=== PATIENT | female | born 1975 | race Caucasian/White ===

== ENCOUNTER 2018-04-28 18:08 | Emergency (ER) | payer OTHER ==
--- NOTE | 2018-04-28 18:45 | EDPHY ---
H & P Time Seen by Provider: 04/28/18 18:38 HPI/ROS: Chief complaint. Chest pain and abdominal pain and back pain HPI. Patient 42-year-old female who presents with upper back and neck pain since yesterday. She has felt tired and achy. She has had abdominal bloating and nausea which is worse after eating. She has some anterior midline chest pressure that does not seem to radiate or be worse with exertion or breathing. No shortness of breath. No upper respiratory symptoms or fever. No known exposure to Infectious Disease. No recent travel. Strong family history of gallbladder disease. Her left shoulder is bothering her more she has a partial rotator cuff tear and think that this is recently exacerbated. ROS 10 systems were reviewed and negative with the exception of the elements mentioned in the history of present illness Past Medical/Surgical History: Anxiety, degenerative disc disease, chronic GI problems, arthritis Social History: Single, nonsmoker, no alcohol Smoking Status: Former smoker Physical Exam: General Appearance: Alert pleasant well-developed female mild distress vital signs are stable Eyes: Pupils equal and round no pallor or injection. ENT, Mouth: Mucous membranes are moist. Respiratory: There are no retractions, lungs are clear to auscultation. Cardiovascular: Regular rate and rhythm. Gastrointestinal: Abdomen is soft with tenderness in upper abdomen both right upper and left upper quadrants as well as epigastrium. Neurological: Awake and alert, sensory and motor exams grossly normal. Skin: Warm and dry, no rashes. Musculoskeletal: Neck is supple nontender. Tightness in the muscles of the upper back. No tenderness over the spine. Extremities symmetrical, full range of motion. Psychiatric: Patient is oriented X 3, there is no agitation. Constitutional: Initial Vital Signs Temperature (C) 36.6 C 04/28/18 18:19 Heart Rate 81 04/28/18 18:19 Respiratory Rate 18 04/28/18 18:19 Blood Pressure 131/85 H 04/28/18 18:19 O2 Sat (%) 94 04/28/18 18:19 O2 Delivery Mode Room Air Allergies/Adverse Reactions: No Known Allergies Allergy (Unverified 04/28/18 18:26) Home Medications: Medication Instructions Recorded Control 04/28/18 CeleBREX 04/28/18 Robaxin 750 mg (*) 04/28/18 traMADol 04/28/18 Medical Decision Making - Diagnostics EKG Interpretation: EKG interpreted by me shows normal sinus rhythm with normal interval. There is left axis deviation. QRS is otherwise normal. There is no significant ST elevation or depression. There is no arrhythmia. The rate is 81 Imaging Results: Imaging Impressions Abdomen Ultrasound 04/28/18 18:57 Impression: No evidence for cholelithiasis or cholecystitis. Probable mild fatty infiltration of the liver. Pancreas is not well visualized secondary overlying bowel gas. Results called and discussed with Ian Joy MD on April 28, 2018 at 1950 hours. Chest X-Ray 04/28/18 18:58 IMPRESSION: No evidence for acute cardiopulmonary abnormality. Ultrasound gallbladder shows no stones. Mild fatty infiltration Chest x-ray interpreted by me is normal Procedures: IV normal saline ED Course/Re-evaluation: Re-evaluation 8:00 p.m.. Patient and I discussed imaging and lab results. We discussed treatment plan including criteria for return importance of follow-up and further evaluation. She expresses understanding and agreement Differential Diagnosis: She got good relief from GI cocktail and I think this retrosternal chest pain represents GERD. We considered gallbladder disease but no evidence for gallstones. Considered acute coronary syndrome but has normal workup. No evidence for pneumonia or infection. - Data Points Laboratory Results: Laboratory Results 04/28/18 19:25 04/28/18 19:25 04/28/18 04/28/18 04/28/18 19:37 19:25 19:25 WBC 3.99 10^3/uL 10^3/uL (3.80-9.50) RBC 4.10 10^6/uL L 10^6/uL (4.18-5.33) Hgb 13.8 g/dL g/dL (12.6-16.3) Hct 41.1 % % (38.0-47.0) MCV 100.2 fL H fL (81.5-99.8) MCH 33.7 pg pg (27.9-34.1) MCHC 33.6 g/dL g/dL (32.4-36.7) RDW 12.6 % % (11.5-15.2) Plt Count 302 10^3/uL 10^3/uL (150-400) MPV 8.8 fL fL (8.7-11.7) Neut % (Auto) 47.6 % % (39.3-74.2) Lymph % (Auto) 37.8 % % (15.0-45.0) [place] % (Auto) 11.5 % % (4.5-13.0) Eos % (Auto) 2.0 % % (0.6-7.6) Baso % (Auto) 0.8 % % (0.3-1.7) Nucleat RBC Rel Count 0.0 % % (0.0-0.2) Absolute Neuts (auto) 1.90 10^3/uL 10^3/uL (1.70-6.50) Absolute Lymphs (auto) 1.51 10^3/uL 10^3/uL (1.00-3.00) Absolute Monos (auto) 0.46 10^3/uL 10^3/uL (0.30-0.80) Absolute Eos (auto) 0.08 10^3/uL 10^3/uL (0.03-0.40) Absolute Basos (auto) 0.03 10^3/uL 10^3/uL (0.02-0.10) Absolute Nucleated RBC 0.00 10^3/uL 10^3/uL (0-0.01) Immature Gran % 0.3 % % (0.0-1.1) Immature Gran # 0.01 10^3/uL 10^3/uL (0.00-0.10) Sodium 138 mEq/L mEq/L (135-145) Potassium 4.3 mEq/L mEq/L (3.5-5.2) Chloride 108 mEq/L mEq/L (97-110) Carbon Dioxide 23 mEq/l mEq/l (22-31) Anion Gap 7 mEq/L mEq/L (6-14) BUN 7 mg/dL mg/dL (7-23) Creatinine 0.7 mg/dL mg/dL (0.6-1.0) Estimated GFR > 60 Glucose 112 mg/dL H mg/dL (70-100) Calcium 8.8 mg/dL mg/dL (8.5-10.4) POC Troponin I 0.01 ng/mL ng/mL (0.00-0.08) Lipase 53 IU/L IU/L (23-300) Medications Given: Discontinued Medications Al Hydroxide/Mg Hydroxide (Maalox Susp) 30 ml PO ONCE ONE Stop: 01/05/19 18:58 Last Admin: 04/28/18 19:04 Dose: 30 ml Lidocaine (Lidocaine 2% Viscous) 15 ml PO ONCE ONE Stop: 04/28/18 18:58 Last Admin: 04/28/18 19:04 Dose: 15 ml Point of Care Test Results: Chemistry 04/28/18 19:37 POC Troponin I 0.01 ng/mL ng/mL (0.00-0.08) Departure - Departure Disposition: Home, Routine, Self-Care Clinical Impression: GERD (gastroesophageal reflux disease) Qualifiers: Esophagitis presence: esophagitis presence not specified Qualified Code(s): K21.9 - Gastro-esophageal reflux disease without esophagitis Condition: Good Instructions: Gastroesophageal Reflux Disease (ED) Additional Instructions: May use Nexium, Prilosec, Tagamet, Zantac for your stomach. May also use malox and Mylanta. Robaxin for muscular Tightness in your back. Tylenol or ibuprofen to help with back discomfort Return for worsening symptoms. [facility] if not improved Referrals: LISA NEFF [Other] - 2-3 days, if not improved
[2018-04-28] MEDS ORDERED: MAG HYDROX/AL HYDROX/SIMETH 30 ML UDCUP PO ONE (18:57)
[2018-04-28] MEDS ORDERED: LIDOCAINE 2% VISCOUS 15 ML UDCUP PO ONE (18:57)
[2018-04-28 19:41] LABS: PLATELET COUNT 302 10^3/uL (150-400)
[2018-04-28] MEDS ORDERED: ONDANSETRON 4 MG/2 ML VIAL IVP PRN (20:18)
[2018-04-28 20:40] VITALS: BP 113/73
--- NOTE | 2018-04-28 20:55 | CPEKG ---
Test Reason : OPEN Blood Pressure : / mmHG Vent. Rate : 081 BPM Atrial Rate : 080 BPM P-R Int : 131 ms QRS Dur : 080 ms QT Int : 364 ms P-R-T Axes : -10 -25 025 degrees QTc Int : 423 ms Sinus rhythm Borderline left axis deviation Confirmed by Ian Joy ([id number]) on 04/28/2018 8:54:52 PM Referred By: Confirmed By:Ian Joy
== END 2018-04-28 20:58 | disposition home or self-care (01) ==
DX: K21.9 Gastro-esophageal reflux disease without esophagitis (principal); F41.9 Anxiety disorder, unspecified; Z87.891 Personal history of nicotine dependence
CPT/HCPCS: 84484-ER

== ENCOUNTER 2018-10-06 12:49 | Observation (INO) | payer OTHER | END 2018-10-07 16:45 | disposition home or self-care (01) | LOC: F3N 17:34 ==